=== PATIENT | female | born 1965 | race Caucasian/White ===

== ENCOUNTER 2018-08-27 05:58 | Day surgery (SDC) | payer SELFPAY ==
[2018-08-18 12:51] VITALS: BMI 26.2
[2018-08-27] MEDS ORDERED: LIDOCAINE HCL 2% (20ML MULTI-DOSE VIAL) NR ONE ×2 (07:30→08:15)
[2018-08-27] MEDS ORDERED: SODIUM BICARBONATE 8.4% 50 MEQ/50 ML VIAL ONE ×2 (07:30→08:15)
[2018-08-27] MEDS ORDERED: EPINEPHrine/PF 1 MG/1 ML (1:1,000) AMPULE ONE ×2 (07:30→08:15)
[2018-08-27] MEDS ORDERED: PROPOFOL 20 ML ONE ×4 (07:57→09:21)
[2018-08-27] MEDS ORDERED: SUCCINYLCHOLINE CHLORIDE 200 MG/10 ML VIAL ONE (07:57)
[2018-08-27] MEDS ORDERED: ROCURONIUM BROMIDE 50 MG/5 ML VIAL ONE (07:57)
[2018-08-27] MEDS ORDERED: fentaNYL CITRATE 250 MCG/5 ML VIAL ONE (07:57)
[2018-08-27] MEDS ORDERED: BUPIVACAINE HCL/EPINEPHRINE/PF 30 ML VIAL IJ ONE (08:21)
[2018-08-27] MEDS ORDERED: ceFAZolin SODIUM 1 GM VIAL ONE (08:30)
[2018-08-27] MEDS ORDERED: DEXAMETHASONE SOD PHOSPHATE 4 MG/1 ML VIAL ONE (08:30)
[2018-08-27] MEDS ORDERED: ONDANSETRON 4 MG/2 ML VIAL ONE (08:30)
[2018-08-27] MEDS ORDERED: PHENYLEPHRINE HCL 10 MG/1 ML SINGLE DOSE VIAL ONE (08:42)
[2018-08-27] MEDS ORDERED: ePHEDrine SULFATE 50 MG/1 ML AMPULE ONE (08:44)
[2018-08-27] MEDS ORDERED: ONDANSETRON 4 MG/2 ML VIAL IVPUSH PRN ×2 (09:59→10:06)
[2018-08-27] MEDS ORDERED: ACETAMINOPHEN 325 MG TABLET (FP) PO PRN (09:59)
[2018-08-27] MEDS ORDERED: LACTATED RINGERS SOLUTION 1,000 ML IV SCH (10:00)
[2018-08-27] MEDS ORDERED: oxyCODONE HCL 5 MG TABLET PO PRN ×2 (10:06)
[2018-08-27] MEDS ORDERED: ACETAMINOPHEN 1000 MG/100 ML VIAL (NON FORMULARY) IVPB ONE (10:07)
[2018-08-27 13:38] VITALS: BP 140/78; PULSE 74; TEMP 97.7
== END 2018-08-27 12:35 | disposition home or self-care (01) ==
LOC: FASU 05:58
PROVIDERS: ATTEND Plastic Surgery
CPT/HCPCS: 94760; J0131